=== PATIENT | male | born 1945 | race Caucasian/White ===

== ENCOUNTER → 2017-05-09 | Outpatient (CLI) | payer MEDICARE, BC ==
[~2017-05-09] VITALS: Ht 177.8 cm; Wt 77.5 kg
[~2017-05-09] MED LIST: ALLO300T2 PO; CHLORHEXIDINE GLUCONATE 2 % 1 PACK (2 CLOTHS) TOPICAL PRN; LACTATED RINGER'S 1000 ML IV PRN; METOPROLOL TARTRATE 25 MG TAB PO PRN; POVIDONE IODINE 5% (ANTISEPSIS KIT) 4 APPLICATIONS EACH NARE PRN; SODIUM CHLORID 0.9% 500 ML IV PRN
--- NOTE | 2017-05-09 13:28 | GIPROC ---
[facility] [address] [facility] [place]. [facility], [address] EGD PROCEDURE REPORT EXAM DATE: 05/09/2017 PATIENT NAME: Isak Cruz MR #: [id number] BIRTHDATE: 1945 ATTENDING: Jyothi Howard MD ORDER #: [id number] WINDOW SASH INSTALLER: Blossom Carr and Patti Hendrickson STATUS: outpatient INDICATIONS: The patient is a 72 yr old male here for an EGD due to acute post hemorrhagic anemia PROCEDURE PERFORMED: EGD w/ biopsy EGD w/ control of bleeding MEDICATIONS: None and Per Anesthesia. TOPICAL ANESTHETIC: CONSENT: The patient understands the risks and benefits of the procedure and understands that these risks include, but are not limited to: sedation, allergic reaction, infection, perforation and/or bleeding. Alternative means of evaluation and treatment include, among others: physical exam, x-rays, and/or surgical intervention. The patient elects to proceed with this endoscopic procedure. medical equipment was checked for proper function. Hand hygiene and appropriate measures for infection prevention was taken. After the risks, benefits and alternatives of the procedure were thoroughly explained, Informed consent was verified, confirmed and timeout was successfully executed by the treatment team. The patient was anesthetized with topical anesthesia and the EC-3490Li (Pedi C) endoscope was introduced through the mouth and advanced to the second portion of the duodenum. Retroflexed views revealed no abnormalities The gastroscope was then slowly withdrawn and removed. 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 The varices were not bleeding. There was evidence of prior scarring. STOMACH: A large bleeding angiodysplastic lesion was found in the gastric body. Argon plasma coagulation was applied to the site(s). With complete hemostasis achieved. There was severe gastritis in the gastric antrum. A biopsy was performed using cold forceps. Sample sent for histology. DUODENUM: The duodenal mucosa appeared normal in the bulb and second portion of the duodenum. ADVERSE EVENTS: There were no complications. IMPRESSIONS: 1. Bleeding angiodysplastic lesion in the gastric body; Argon plasma coagulation was applied to the site(s); with complete hemostasis achieved 2. There was gastritis in the gastric antrum; biopsy was performed 3. Normal duodenal mucosa in the bulb and second portion of the duodenum 4. Retroflexed views revealed no abnormalities RECOMMENDATIONS: 1. Anti-reflux regimen 2. Continue PPI 3. Avoid NSAIDS 4. Follow-up: GI clinic 1 week(s) 5. Cbc PATIENT CONDITION: stable DISPOSITION: Home REPEAT EXAM: Return 1 month EGD with sclerotherapy Jyothi Howard MD eSigned: Jyothi Howrad MD 05/09/2017 1:27 PM cc: PATIENT NAME: Isak Cruz MR#: [id number]
--- NOTE | 2017-05-09 13:30 | GIPROC ---
[facility] [address] [facility]. [facility], [address] COLONOSCOPY PROCEDURE REPORT EXAM DATE: 05/09/2017 PATIENT NAME: Isak Cruz MR #: [id number] BIRTHDATE: 1945 ENDOSCOPIST: Jyothi Howard MD ORDER #: [id number] SPINNING FRAME CHANGER: Blossom Crar and Patti Hendrickson STATUS: outpatient INDICATIONS: The patient is a 72 yr old male here for a colonoscopy due to anemia, non-specific and hematochezia PROCEDURE PERFORMED: Colonoscopy with ablation MEDICATIONS: None and Per Anesthesia. PREP QUALITY: The [place] Bowel Prep Score was Right colon 1, Mid colon 2, and Left colon 1. Total = 4. PREP TYPE:GoLytely ESTIMATED BLOOD LOSS: None CONSENT: The patient understands the risks and benefits of the procedure and understands that these risks include, but are not limited to: sedation, allergic reaction, infection, perforation and/or bleeding. Alternative means of evaluation and treatment include, among others: physical exam, x-rays, and/or surgical intervention. The patient elects to proceed with this endoscopic procedure. medical equipment was checked for proper function. Hand hygiene and appropriate measures for infection prevention was taken. After the risks, benefits and alternatives of the procedure were thoroughly explained, Informed consent was verified, confirmed and timeout was successfully executed by the treatment team. A digital exam revealed external hemorrhoids and revealed internal hemorrhoids The Pentax EC-3490Li endoscope was introduced through the anus and advanced to the cecum, which was identified by both the appendix and ileocecal valve. The instrument was then slowly withdrawn as the colon was fully examined. COLON FINDINGS: Medium sized angiodysplastic lesion was found in the rectum. Destruction of lesion via ablation was attempted. Bleeding from maneuver treated with cautery. Argon plasma coagulation was used. Care was given to ensure that the lumen was suctioned well. Retroflexed views revealed internal hemorrhoids and Retroflexed views revealed medium internal hemorrhoids The scope was then completely withdrawn from the patient and the procedure terminated. PROCEDURE WITHDRAWAL TIME:6minutes ADVERSE EVENTS: There were no complications. IMPRESSIONS: 1. Medium sized angiodysplastic lesion and in the rectum; Destruction of lesion via ablation was attempted 2. Retroflexed views revealed internal hemorrhoids 3. Retroflexed views revealed medium internal hemorrhoids 4. Revealed external hemorrhoids 5. Revealed internal hemorrhoids RECOMMENDATIONS: 1. Benefiber 2 tsp daily 2. Continue surveillance 3. Yearly hemoccult RECALL: Return 1 year Colonoscopy Jyothi Howard MD eSigned: Jyothi Howard MD 05/09/2017 1:29 PM cc: PATIENT NAME: Isak Cruz MR#: [id number]
[2017-05-09 13:35] VITALS: BP 119/57; PULSE 64; RESP 18; TEMP 97.7; O2SAT 99
--- NOTE | 2017-05-09 14:00 | EKG ---
Date Performed: 05/09/2017 Time Performed: 12:03:53 PTAGE: 72 years EKG: Sinus rhythm WITH PACs BORDERLINE ECG NO PREVIOUS TRACING DOCTOR: Uriel Cisse Interpretating Date/Time 05/09/2017 13:58:47
== END ==
LOC: HSDC 11:31
PROVIDERS: ATTEND Internal Medicine Gastroenterology
DX: K31.811 Angiodysplasia of stomach and duodenum with bleeding (principal); K29.70 Gastritis, unspecified, without bleeding; K55.21 Angiodysplasia of colon with hemorrhage; K64.4 Residual hemorrhoidal skin tags; K64.8 Other hemorrhoids; D62 Acute posthemorrhagic anemia; K62.7 Radiation proctitis; C61 Malignant neoplasm of prostate; I10 Essential (primary) hypertension; E11.9 Type 2 diabetes mellitus without complications; K74.60 Unspecified cirrhosis of liver; Z87.891 Personal history of nicotine dependence; Z87.19 Personal history of other diseases of the digestive system
CPT/HCPCS: 00813; 43239; 43255; 45382; 88305; 93005; J7120